=== PATIENT | female | born 1955 | race Caucasian/White ===

== ENCOUNTER 2021-01-17 10:41 | Outpatient (CLI) | payer BC ==
--- NOTE | 2021-01-20 10:18 | Mammography Report ---
BILATERAL DIGITAL DIAGNOSTIC MAMMOGRAM 3D/2D: 01/17/2021 CLINICAL: Focal right breast pain. Comparison is made to exam dated: 11/06/2010 mammogram - [facility]. The tissue of both breasts is predominantly fatty. No significant masses, calcifications, or other findings are seen in either breast. IMPRESSION: INCOMPLETE: NEEDS ADDITIONAL IMAGING EVALUATION No suspicious mammographic finding. An ultrasound of the left retroareolar region will be performed. An ultrasound of the right breast area of focal pain will also be performed. This exam was interpreted at Station ID: [id number]. NOTE: For mammograms, a report in lay terms will be sent to the patient. Approximately 15% of breast malignancies will not be visualized mammographically. In the management of a palpable breast mass, a negative mammogram must not discourage biopsy of a clinically suspicious lesion. Electronically Signed By: Lewis Mackay M.D. jr/:01/17/2021 14:02:07 ACR BI-RADS Category 0: Incomplete 3340F PARENCHYMAL PATTERN: (F) - The breast(s) demonstrate(s) diffuse fatty replacement. BI-RADS CATEGORY: (0) - 0 Ultrasound [id number] Immediate follow-up LATERALITY: (B)
--- NOTE | 2021-01-20 10:19 | Ultrasound Report ---
LIMITED ULTRASOUND OF LEFT BREAST: 01/17/2021 CLINICAL: Additional evaluation requested from prior study. No prior exams were available for comparison. Color flow ultrasound of the left breast retroareolar was performed. Burgess scale images of the real- time examination were reviewed. No suspicious sonographic abnormality. IMPRESSION: INCOMPLETE: NEEDS ADDITIONAL IMAGING EVALUATION No abnormality detected. If there is persistent nipple retraction, then an MRI breast should be obtai tiburcio. This exam was interpreted at Station ID: [id number]. Electronically Signed By: Lewis Mackay M.D. jr/:01/17/2021 14:03:22 Ultrasound BI-RADS: 0 Indeterminate BI-RADS CATEGORY: (0) - 0 MRI [id number] Immediate follow-up LATERALITY: (B)
--- NOTE | 2021-01-20 10:19 | Ultrasound Report ---
LIMITED ULTRASOUND OF RIGHT BREAST: 01/17/2021 CLINICAL: Intermitten pain in Rt breast. No prior exams were available for comparison. Color flow and real-time ultrasound of the right breast 6-9 o'clock region were performed. Burgess scal e images of the real-time examination were reviewed. No significant abnormalities were seen sonographically in the right breast. IMPRESSION: NEGATIVE There is no sonographic evidence of malignancy. A 1 year screening mammogram is recommended. This exam was interpreted at Station ID: [id number]. Electronically Signed By: Lewis Mackay M.D., jr/zoltan:01/17/2021 14:05:32 Ultrasound BI-RADS: 1 Negative BI-RADS CATEGORY: (1) - 1 RECOMMENDATION: (ANNUAL) - Recommend routine annual screening mammography. [id number] 1 year screening LATERALITY: (B)
== END 2021-01-17 10:42 | disposition home or self-care (01) ==
LOC: DI 10:41
PROVIDERS: ATTEND Family Medicine
DX: N64.4 Mastodynia (principal); R92.2 Inconclusive mammogram